=== PATIENT | female | born 1955 | race Caucasian/White ===

== ENCOUNTER 2018-02-01 15:25 | Emergency (ER) | payer MEDICARE, MEDICAID ==
[2018-02-01 17:30] VITALS: BP 141/82
--- NOTE | 2018-02-01 17:43 | UC ---
Lower Extremity/Ankle HPI - HPI Summary HPI Summary: Pt is accompanied by primary care nurse practitioner. 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 - History of Current Complaint Hx Obtained From: Family/Contour Grinder Hx Last Menstrual Period: n/a ?: No Onset/Duration: Gradual Onset, Lasting Weeks - 4, Still Present Severity Initially: Mild Severity Currently: Moderate Pain Intensity: 10 Aggravating Factor(s): Standing, Ambulation Alleviating Factor(s): Rest, Elevation Able to Bear Weight: Yes - minimal - Risk Factors Gout Risk Factors: Age Over 40 DVT Risk Factors: Other: - distal extremity malforamtion presumed from maternal thalidamide use Septic Arthritis Risk Factor: Negative <Fely Traore NP - Last Filed: 02/01/18 18:23> <Lucrecia Walker - Last Filed: 02/01/18 19:31> - History of Current Complaint Chief Complaint: UCLowerExtremity Stated Complaint: LEFT FOOT SWELLING Time Seen by Provider: 02/01/18 17:08 - Allergies/Home Medications Allergies/Adverse Reactions: Allergies Allergy/AdvReac Type Severity Reaction Status Date / Time No Known Allergies Allergy Verified 02/01/18 17:15 Home Medications: Home Medications Acetaminophen TAB* [Tylenol TAB*] 650 mg PO Q4H PRN 02/01/18 [History Confirmed 02/01/18] Diclofenac Sodium 100 mg PO DAILY 02/01/18 [History Confirmed 02/01/18] Liquid Antacid 1 dose PO SEE INSTRUCTIONS PRN 02/01/18 [History Confirmed ] Neomycin/Bacitracin/Polymyxinb [Triple Antibiotic Ointment] 1 each TP Q4HR PRN 02/01/18 [History Confirmed 02/01/18] guaiFENesin LIQ* [Robitussin*] 10 ml PO Q4H PRN 02/01/18 [History Confirmed ] PMH/Surg Hx/FS Hx/Imm Hx Previously Healthy: No - prexisting conditions - Surgical History Surgical History: None - Family History Known Family History: Positive: Hypertension - Social History Occupation: Disabled Lives: [place] Alcohol Use: None Substance Use Type: None Smoking Status (MU): Never Smoked Tobacco Have You Smoked in the Last Year: No <Fely Traore NP - Last Filed: 02/01/18 18:23> Review of Systems Constitutional: Fever Skin: Bruising Eyes: Negative ENT: Negative Respiratory: Negative Cardiovascular: Negative Gastrointestinal: Negative Genitourinary: Negative Motor: Decreased ROM Neurovascular: Other - extremity malformation Musculoskeletal: Decreased ROM - left foot, Edema, Myalgia Psychological: Negative Is Patient Immunocompromised?: No All Other Systems Reviewed And Are Negative: Yes <Fely Traore NP - Last Filed: 02/01/18 18:23> Physical Exam Triage Information Reviewed: Yes Completion Of Physical Exam Limited Due To: Other - pre-existing condition Vital Signs: Initial Vital Signs Temp 100.5 F 02/01/18 17:25 Pulse 98 02/01/18 17:25 Resp 24 02/01/18 17:25 BP 141/82 02/01/18 17:25 Pulse Ox 98 02/01/18 17:25 Vital Signs Reviewed: Yes Eye Exam: Normal Respiratory: Positive: No respiratory distress Musculoskeletal: Positive: Edema @ - non pitting to left foot,, Other: - bilateral malformation of feet and hands Neurological: Positive: Alert Psychological Exam: Normal Skin Exam: Other - bruising medial aspect of left heel and inner foot <Fely Traore NP - Last Filed: 02/01/18 18:23> Vital Signs: Initial Vital Signs Temp 100.5 F 02/01/18 17:25 Pulse 98 02/01/18 17:25 Resp 24 02/01/18 17:25 BP 141/82 02/01/18 17:25 Pulse Ox 98 02/01/18 17:25 <Lucrecia Walker - Last Filed: 02/01/18 19:31> Lower Extremity Course/Dx - Course Course Of Treatment: It was discussed wiht the cargiver, that the pt has unilateral non pitting edema, ecchymosis, and fever of 100.5 at time of physical exam. Pt does not have c/o of st, ear ache, cough or dysuria. It was discussed with the caregiver that the recommendation is to go to closest emergency room for further evaluation of testing. - Differential Dx/Diagnosis Differential Diagnosis/HQI/PQRI: DVT, Fracture (Closed), Infection Provider Diagnoses: contusion-left foot. fever. left foot edema <Fely Traore NP - Last Filed: 02/01/18 18:23> Discharge - Sign-Out/Discharge Documenting (check all that apply): Discharge - Billing Disposition and Condition Condition: STABLE Disposition: HOME <Fely Traore NP - Last Filed: 02/01/18 18:23> - Billing Disposition and Condition Condition: STABLE Disposition: HOME <Lucrecia Walker - Last Filed: 02/01/18 19:31> - Discharge Plan Condition: Stable Disposition: HOME Patient Education Materials: Fever in Adults (ED), Foot Contusion (ED), Leg Edema (ED) Referrals: Drea Anguiano MD [Primary Care Provider] - Additional Instructions: It is recommended that you seek further evaluation at the closest emergency room. Attestation Statement User Type: Provider - I was available for consult. This patient was seen by the advanced practice provider. The patient was not presented to, seen by, or examined by me.-Ljj <Lucrecia Walker - Last Filed: 02/01/18 19:31> Addendum entered and electronically signed by León GIORDANO,Fely Phillips NP 18:23: Addendum Addendum: I called [facility] and spoke with Marilin Su. Pt was accepted for evaluation.
--- NOTE | 2018-02-01 18:21 | RAD ---
INDICATION: Left foot pain and swelling COMPARISON: None. TECHNIQUE: 3 views of the left foot were obtained. 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 For example the proximal portions of the first and second metatarsals as well as the fourth and fifth metatarsals appear fused. More distally there is apparent fusion of the phalanges of the third and fourth toes. There is no definite fracture or dislocation. There is mild induration and appearance and swelling in the surrounding soft tissues. IMPRESSION: 1. EVIDENCE OF SUBCUTANEOUS INDURATION AND THICKENING WITHOUT DEFINITE UNDERLYING ACUTE BONY ABNORMALITY. 2. 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 If the patient's symptoms persist, follow-up imaging is recommended.
== END 2018-02-01 18:30 | disposition home or self-care (01) ==
LOC: UCCORT 15:25
DX: S90.32XA Contusion of left foot, initial encounter (principal); X58.XXXA Exposure to other specified factors, initial encounter; Y93.9 Activity, unspecified; R50.9 Fever, unspecified; R60.9 Edema, unspecified; Q86.8 Other congenital malformation syndromes due to known exogenous causes; I69.919 Unspecified symptoms and signs involving cognitive functions following unspecified cerebrovascular disease; P04.1 Newborn affected by other maternal medication
CPT/HCPCS: 99212; G0463